=== PATIENT | female | born 1955 | race Caucasian/White ===

== ENCOUNTER 2022-05-19 22:24 | Emergency (ER) | payer OTHER ==
[~2022-05-19 22:24] MED LIST: GABAPENTIN600 MG PO; KEFLEX CAP 500500 MG PO; LOSARTAN PO; LOVENOX SY40 MG/0.4 SQ; NEXIUM20 MG PO; PERCOCET 5-3251 EACH PO; VIT D PO; VITAMIN C 500500 MG PO; VITAMIN D250000 UNIT PO; [UNRECOGNIZED DRUG - OTHER] PO
[2022-05-19 23:14] LABS: HEMOGLOBIN 13.9 gm/dl (12.3-15.3); RED BLOOD COUNT 4.66 M/UL (4.00-5.10); WHITE BLOOD COUNT 7.9 K/UL (4.5-11.0)
[2022-05-19 23:38] LABS: BUN/CREATININE RATIO 25 (0-10)
== END 2022-05-20 04:45 | disposition home or self-care (01) ==
LOC: ER1 22:24
PROVIDERS: Physician Assistant
DX: N85.00 Endometrial hyperplasia, unspecified (principal); K76.0 Fatty (change of) liver, not elsewhere classified; R63.0 Anorexia
CPT/HCPCS: 80053; 81001; 83690; 85025; 99284; Q9967